=== PATIENT | female | born 1990 | race Caucasian/White ===

== ENCOUNTER → 2016-02-18 | Day surgery (SDC) | payer OTHER ==
--- NOTE | 2016-02-16 09:39 | History & Physical Pre-Op ---
General Information and HPI History of Present Illness: Grisel is a 25-year-old female complaining of painful bunions both left and right feet. Of note, the patient also complained complains of painful tailor's bunions left and right feet. Patient is undergone an extended course of conservative care, including shoe gear and activity modification, rest, immobilization and courses of NSAIDs. None of this is yielded her any significant relief. The patient presents today for preoperative surgical consultation and was referred from Moreno Saxena DPM. Allergies/Medications Allergies: Coded Allergies: latex (BY ALLERGY TESTING 02/14/16) Home Med list Linaclotide (Linzess) 290 MCG CAPSULE 1 CAP PO DAILY CONSTIPATION (Reported) Lorazepam 0.5 MG TABLET 1 TAB PO QPM ANXIETY (Reported) Norethindrone AC-Eth Estradiol (Junel 1 MG-20 Mcg Tablet) (Unknown Strength) TABLET 1 TAB PO DAILY CONTROL (Reported) Paroxetine HCl (Paxil) 40 MG TABLET 1 TAB PO QPM ANXIETY (Reported) Past History Surgical History Pertinent Surgical History: non-contributory Review of Systems Review of Systems: Unremarkable except for that noted in history of present illness Exam & Diagnostic Data Physical Exam: Lungs clear bilaterally. Heart sounds rate and rhythm regular. Lower extremity physical exam demonstrates intact pedal pulses bilaterally. Pulses dorsalis pedis and posterior tibial arteries are palpable bilaterally. Patient without any sensory motor deficits. Deep tendon reflexes grossly intact. Patient noted assuming pain with palpation range of motion through the left and right first metatarsophalangeal joints. The hallux is noted to be tracking in track bound. There is also pain overlying the lateral aspect of the left and right fifth metatarsophalangeal joints. Assessment/Plan Assessment/Plan: Painful bunions bilaterally. A lengthy discussion reviewing both surgical and conservative options was held the patient at bedside and the patient elected to go forward with surgery despite the risks. As Ranked By This Provider Problem List: 1. Acquired hallux valgus of both feet Attending MD Review Statement Attending Statement Attending MD Statement: examined this patient
[~2016-02-18] VITALS: Ht 170.2 cm; Wt 70.3 kg
[~2016-02-18] MED LIST: JUNEL 1 MG-201 EACH PO; LINZESS290 MC1 PO; LORAZEPAM0.5 M1 PO; PAXIL40 M1 PO
--- NOTE | 2016-02-18 09:52 | Operative Report ---
Operative/Inv Procedure Report Surgery Date: 02/18/16 Name of Procedure: 1 Navdeep bunionectomy right foot 2 Navdeep bunionectomy left foot 3 Tailor's bunionectomy right foot 4. Tailor's bunionectomy left foot Pre-Operative Diagnosis: 1 hallux valgus right foot 2 hallux valgus left foot 3 tailor's bunion right foot 4 tailor's bunion left foot Post-Operative Diagnosis: The same Estimated Blood Loss: scant Surgeon/Patient Insurance Clerk: JEREMIE BECERRA DPM Anesthesia: moderate sedation, block Operative/Procedure Note Note: After obtaining informed consent the patient was brought to the operating room and placed on the operating table in the supine position. The patient was then securely fastened to the operating table utilizing a safety belt. After administration of IV sedation, 10 mL of 0.5% Marcaine plain was infiltrated about the patient's left and right ankles. Well-padded ankle tourniquets were placed about the patient's bilateral lower extremities. The patient's bilateral lower extremities
--- NOTE | 2016-03-08 20:42 | Operative Report ---
Operative/Inv Procedure Report Surgery Date: 02/18/16 Name of Procedure: 1 Navdeep bunionectomy right 2 Navdeep bunionectomy left 3 Tailor's bunionectomy right 4 Tailor's bunionectomy left Pre-Operative Diagnosis: 1 Hallux valgus right 2 Hallux valgus left 3 Tailor's bunion right 4 Tailor's bunion left Post-Operative Diagnosis: The same Estimated Blood Loss: scant Surgeon/Dairy Nutrition Consultant: JEREMIE BECERRA DPM Anesthesia: moderate sedation, block Operative/Procedure Note Note: After obtaining informed consent, the patient was brought the operating room and placed on the operating table in the supine position. The patient was then securely fastened to the operating table with a safety belt. After administration of IV sedation, 10 mL of 0.5% marcaine plain was infiltrated about the patient's left and right ankles. Two well-padded ankle tourniquets were placed about the patient's bilateral ankles. The right lower extremity was then elevated and the ankle tourniquet was inflated to 250mmHg. Attention was directed to the dorsolateral foot, where a 6 cm linear incision was made just medial to the extensor hallucis longus tendon. This was deepened to the capsular structures were an inverted L capsulotomy was performed, exposing the medial emminence. This was then resected with a sagittal bone saw. A chevron osteotomy was then performed and the capital fragment translated laterally on the metatarsal shaft. This was temporarily stabilized with a 0.062 K-wire. The osteotomy was stabilized utiliizing standard AO fixation techniques. The capsular structures were then repaired with 3-0 vicryl and the subcutaneous tissues reapproximated with 4-0 vicryl. The skin edges were then reapproximated ultilizing 4-0 monocryl, followed by steristrips. Attention was then directed to the dorsolateral foot, where a 4 cm linear incision was made over the distal 5th metatarsal. A linear capsulotomy was then performed, exposing the lateral emminence which was resected with a sagittal bone saw. The capsular structures were then reapproximated with 3-0 vicryl and the subcutaneous tissues reapproximated with 4-0 vicryl. The skin edges were then reapproximated with 4- 0 nylon. The incisions were then dressed with xeroform, 4x4's and kerlix, followed by an CIARAN wrap. The tourniquet was then deflated and the same sequence of steps and proceedures was performed on the left lower extremity. The patient was noted to tolerate both the proceedures and anesthesia well and was transported from the operating room to recovery with vital signs stable and vascular status intact to all digitis bilateral feet.
== END ==
LOC: STS 04:04
DX: M20.12 Hallux valgus (acquired), left foot (principal); M20.11 Hallux valgus (acquired), right foot; M21.622 Bunionette of left foot; M21.621 Bunionette of right foot; J45.909 Unspecified asthma, uncomplicated
CPT/HCPCS: 81025; 88304; J0690; J2001; J2250